=== PATIENT | male | born 1960 | race Caucasian/White ===

== ENCOUNTER 2017-03-08 09:10 | Day surgery (SDC) | payer OTHER ==
[2017-03-01 09:50] VITALS: BMI 25.4
[2017-03-08] MEDS ORDERED: MIDAZOLAM HCL 2 MG/2 ML SINGLE DOSE VIAL ONE (09:54)
[2017-03-08] MEDS ORDERED: PROPOFOL 20 ML ONE ×3 (09:55→15:27)
[2017-03-08] MEDS ORDERED: ROCURONIUM BROMIDE 50 MG/5 ML VIAL ONE ×2 (09:55→13:10)
[2017-03-08] MEDS ORDERED: SODIUM CHLORIDE 0.9% P/F 10 ML VIAL IJ ONE (10:03)
[2017-03-08] MEDS ORDERED: ePHEDrine SULFATE 50 MG/1 ML AMPULE ONE (10:03)
[2017-03-08] MEDS ORDERED: THROMBIN (BOVINE) 5,000 UNIT VIAL TP ONE ×2 (13:03→14:34)
[2017-03-08] MEDS ORDERED: GELATIN, ABSORBABLE 100 EACH SPONGE TP ONE ×2 (13:03→14:35)
[2017-03-08] MEDS ORDERED: LIDOCAINE HCL/PF 2% SDV 5ML VIAL ONE (13:09)
[2017-03-08] MEDS ORDERED: SUCCINYLCHOLINE CHLORIDE 200 MG/10 ML VIAL ONE (13:10)
[2017-03-08] MEDS ORDERED: ceFAZolin SODIUM 1 GM VIAL ONE (13:48)
[2017-03-08] MEDS ORDERED: ONDANSETRON 4 MG/2 ML VIAL ONE (13:49)
[2017-03-08] MEDS ORDERED: oxyCODONE HCL 5 MG TABLET PO PRN (15:52)
[2017-03-08] MEDS ORDERED: ONDANSETRON 4 MG/2 ML VIAL IVPUSH PRN (15:52)
--- NOTE | 2017-03-08 15:56 | OP ---
Operative Note - Note: Operative Date: 03/08/17 Pre-Operative Diagnosis: lumbar radiculopathy Operation: L4-L5 laminectomy Post-Operative Diagnosis: Same as Pre-op Surgeon: Ryder Zuleta Guest Service Host: Ekaterina Disla Anesthesiologist/INDUSTRIAL HEALTH AND SAFETY PROFESSOR: Sander Hughes Anesthesia: General Fluid Volume Replaced (mls): 1,000
--- NOTE | 2017-03-08 15:59 | SURG ---
Surgery Surveillance System Monitor Note Surveillance System Monitor: Ekaterina Disla PA-C Date of Service: 03/08/17 Diagnosis: lumbar radiculopathy Procedure: L4-L5 laminectomy I was present for the entirety of the operative procedure. For further detail, please refer to operative report. Visit type - Case Type Case Type: Scheduled Admission - Emergency Emergency Visit: No - New patient This patient is new to me today: Yes Date on this admission: 03/08/17
[2017-03-08 16:42] VITALS: TEMP 98
[2017-03-08 17:45] VITALS: BP 138/84; PULSE 83
--- NOTE | 2017-03-09 12:50 | OP ---
DATE OF OPERATION: 03/08/2017 PREOPERATIVE DIAGNOSES: 1. Chronic lumbar radiculopathy. 2. Lumbar spinal stenosis. POSTOPERATIVE DIAGNOSES: 1. Chronic lumbar radiculopathy. 2. Lumbar spinal stenosis. PROCEDURE PERFORMED: Lumbar single level decompressive laminectomy at L4-L5. SURGEON: Ryedr Zuleta MD MORTGAGE COLLECTOR: BERNARDO Quinn ANESTHESIA: General. INDICATION: The patient is a 56-year-old male with a prolonged history of chronic low back pain as well as radicular pain down the bilateral lower extremities. This has been refractory to management with multiple treatments including epidural steroid injections and oral medications. He has been symptomatic greater than a year. MRI shows [id number] lumbar spinal stenosis at L4-L5. He is indicated for operative decompression. Risks, benefits, and alternatives of the surgery were discussed in detail with the patient. Informed consent was obtained. The patient understands that the surgery is intended to help with his radicular leg pain and not chronic back pain. DESCRIPTION OF PROCEDURE: The patient was brought into the operating room by stretcher, and general endotracheal anesthesia was administered by the anesthesiologist. The patient was then flipped into the prone position onto padded Bo frame. All bony prominences were padded, and the back was then prepped and draped in the usual sterile fashion. A fluoroscopic C-arm was brought in to allow for intraoperative lateral fluoroscopic radiographs. The back was then prepped and draped in the usual sterile fashion. A time-out was performed, and prophylactic IV antibiotics were administered. A localizing radiograph was then taken to localize level, and a midline incision was made at the appropriate level. Dissection was then carried down to the level of the fascia. The fascia was split with electrocautery. A subperiosteal dissection was carried down exposing the bony spine and the L4 lamina. A deep retractor was then placed. A decompressive laminectomy of the L4 lamina was performed with a near subtotal L4 laminectomy. The decompression was carried down to the pedicles bilaterally with medial facetectomies and foraminotomies. There was noted to be severe spinal stenosis clinically especially in the lateral recesses. This was well decompressed with excision of the ligamentum flavum, which was hypertrophic. Excellent decompression was noted. Hemostasis was achieved. The wounds were then copiously irrigated. The fascia was then closed with No. 1 Vicryl suture. The deep dermal tissues were approximated with a 2-0 Vicryl suture, and the skin was closed with darnell. BERNARDO Quinn was necessary throughout the case with proper assistance and retraction of the neural elements in the laminectomy portion of the procedure. This could not have been done without a skilled surgical assistance. Jagdeep [id number]
== END 2017-03-08 18:00 | disposition home or self-care (01) ==
LOC: FASU 09:10
PROVIDERS: ATTEND Orthopaedic Surgery Orthopaedic Surgery of the Spine
PROC: 01NB0ZZ Release Lumbar Nerve, Open Approach (ICD-10-PCS; principal; 2017-03-08 11:00)
DX: M48.061 Spinal stenosis, lumbar region without neurogenic claudication (principal); M54.16 Radiculopathy, lumbar region
CPT/HCPCS: 72100-TC; 76000-TC; 94760